=== PATIENT | female | born 1955 | race Caucasian/White ===

== ENCOUNTER 2019-07-28 10:50 | Emergency (ER) | payer MEDICARE ==
[~2019-07-28] VITALS: Ht 160 cm; Wt 59.0 kg
== END 2019-07-28 12:30 | disposition home or self-care (01) ==
LOC: ER 10:50
DX: S61.210A Laceration without foreign body of right index finger without damage to nail, initial encounter (principal); W26.0XXA Contact with knife, initial encounter
CPT/HCPCS: 12001; 73140; 99283-25